=== PATIENT | female | born 1945 | race Caucasian/White ===

== ENCOUNTER → 2016-08-29 | Outpatient (CLI) | payer BC ==
[~2016-08-29] MED LIST: ACET-1138 PO; ASCA500 PO; ASPEC325 PO; B-CO1CAP3 PO; BIOT1TAB2 PO; CALC1CHW47 PO; CHOL400C PO; CZR50 PO; DIPH25TA24 PO; DLD2 PO; ESTCR TOP; ESTR0.0510 TD; FRRG PO; IPRA0.03 NAE; L-ARGININE PO; LEVO25TA PO; MISCCAP80 PO; NCYSR50 PO; PSEU60TA80 PO; PTDOPS OPB; RANI1TAB77 PO; TOLT4CAP PO; TRAM-10 PO; [UNRECOGNIZED DRUG - OTHER] PO
--- NOTE | 2016-08-30 07:38 | MAMMOGRAPHY REPORT ---
BILATERAL DIGITAL SCREENING MAMMOGRAM WITH CAD: 08/29/2016 CLINICAL HISTORY: Routine screening. Patient has no complaints. TECHNIQUE: Bilateral CC and MLO views were obtained. Current study was also evaluated with a Comput er Aided Detection (CAD) system. COMPARISON: Comparison is made to exams dated: 08/23/2015 mammogram, 08/08/2013 mammogram, 12/11/2014 specimen, 12/11/2014 localization, 09/08/2014 ultrasound biopsy, and 09/08/2014 ultrasound - [facility]. BREAST COMPOSITION: The tissue of both breasts is heterogeneously dense, which may obscure small ma sses. FINDINGS: There is expected architectural distortion in the lower inner quadrant of the left breast, at the site of benign surgical excisional biopsy. No new suspicious mass, architectural distortion or cluster of microcalcifications is seen. IMPRESSION: ACR BI-RADS CATEGORY 1: NEGATIVE There is no mammographic evidence of malignancy. A 1 year screening mammogram is recommended. The p atient will receive written notification of the results. Approximately 10% of breast cancers are not detected with mammography. A negative mammographic repor t should not delay biopsy if a clinically suggestive mass is present. Mickie Johansen M.D. ay/:08/29/2016 15:32:47 [employer]ovator Machine Operator: Petra FONSECA(R)(M), [facility] letter sent: Normal 1/2 BI-RADS Code: ACR BI-RADS Category 1: Negative
== END | disposition home or self-care (01) ==
LOC: C.MAMM 11:27
PROVIDERS: ATTEND Obstetrics & Gynecology
DX: Z12.31 Encounter for screening mammogram for malignant neoplasm of breast (principal)

== ENCOUNTER → 2016-11-15 | Outpatient (CLI) | payer BC ==
[~2016-11-15] MED LIST changes: -DLD2 PO; +HYDR2TAB3 PO
[2016-11-15 16:11] LABS: URINE APPEARANCE TURBID (CLEAR); URINE BILIRUBIN NEG (NEG); URINE COLOR YELLOW; URINE EPITHELIAL CELL AUTO >30 /lpf (0-5); URINE NITRITE POS (NEG); URINE SPECIFIC GRAVITY 1.013 (1.000-1.030); UROBILINOGEN NEG (NEG)
[2016-11-15 16:14] LABS: MANUAL MICROSCOPIC REQUIRED? NO; REVIEW REQ? NO
== END | disposition home or self-care (01) ==
LOC: C.LABSPEC 14:52
PROVIDERS: ATTEND Physician Assistant
DX: R39.9 Unspecified symptoms and signs involving the genitourinary system (principal)